=== PATIENT | female | born 1935 | race Caucasian/White ===

== ENCOUNTER → 2020-04-24 | Outpatient (CLI) | payer OTHER ==
[~2020-04-24] MED LIST: LEVOTHYROXINE0.1 MG PO; PRAVACHOL40 MG PO; PREMARIN0.625 M1 PO; VICODIN 5-3001 EACH PO; ZOVIRAX400 MG PO
[2020-04-27 18:06] LABS: TB1 Ag VALUE 0.01 IU/mL (.)
== END | disposition home or self-care (01) ==
LOC: LAB 14:30
PROVIDERS: Internal Medicine Rheumatology
DX: M31.6 Other giant cell arteritis (principal); Z79.899 Other long term (current) drug therapy

== ENCOUNTER 2021-09-08 08:07 | Inpatient (IN) | payer OTHER ==
[~2021-09-08] VITALS: Ht 165.1 cm; Wt 44.0 kg
[2021-09-08 08:23] VITALS: BP 95/42
[2021-09-08 08:57] LABS: HEMATOCRIT 37.2 % (37.0-47.0); MEAN CELL VOLUME 97.9 fl (81.0-99.0); MEAN CORPUSCULAR HGB 30.5 pg (27.0-31.0); MEAN CORPUSCULAR HGB CONC 31.2 g/dl (33.0-37.0); PLATELET COUNT AUTOMATED 152 10*3/uL (130-400); RED CELL DISTRI WIDTH 13.7 % (0-14.5); WHITE BLOOD COUNT 26.5 10*3/uL (4.8-10.8)
[2021-09-08 09:14] LABS: ALBUMIN 3.4 gm/dl (3.1-4.5); CREATININE 1.54 mg/dL (0.55-1.02); OVALOCYTES FEW; PLATELET SUFFICIENCY NORMAL (NORMAL); POLYCHROMASIA SLIGHT; POTASSIUM 4.2 mmol/L (3.5-5.1); SCHISTOCYTES FEW; TOTAL CELLS COUNTED 100 #CELLS
[2021-09-08 09:15] LABS: TROPONIN I 0.016 ng/ml (<0.045)
[2021-09-08 10:07] LABS: BILIRUBIN Negative (Negative); BLOOD 3+ (Negative); CLARITY Turbid (Clear); COLOR Yellow (Yellow); GLUCOSE Negative (Negative); KETONE Negative (Negative); LEUKO ESTERASE 3+ (Negative); NITRITE Positive (Negative); PH 5.5 (4.5-8.0); UROBILINOGEN 0.2 E.U./dl (0.0-1.0)
[2021-09-08 10:15] LABS: WBC TNTC wbc/hpf (0-5)
[2021-09-08 12:50] VITALS: BP 111/54
[2021-09-08] MEDS ORDERED: GABAPENTIN400 MG PO (13:12)
[2021-09-08] MEDS ORDERED: HORIZANT600 M1 PO (13:13)
[2021-09-08] MEDS ORDERED: PREDNISONE5 MG PO (13:14)
[2021-09-08] MEDS ORDERED: LEVOXYL112 MCG PO (13:16)
[2021-09-08 14:00] VITALS: BP 133/54
[2021-09-08] MEDS ORDERED: ACTEMRA AC162 MG/0.9 SQ (14:40)
[2021-09-08 16:00] VITALS: BP 134/57
[2021-09-08 20:00] VITALS: BP 110/42
[2021-09-09] VITALS: BP 95/46
[2021-09-09 06:29] LABS: HEMATOCRIT 35.6 % (37.0-47.0); MEAN CELL VOLUME 100.6 fl (81.0-99.0); MEAN CORPUSCULAR HGB 30.2 pg (27.0-31.0); MEAN CORPUSCULAR HGB CONC 30.1 g/dl (33.0-37.0); MEAN PLATELET VOLUME 10.6 fl (9.6-12.3); PLATELET COUNT AUTOMATED 142 10*3/uL (130-400); RED BLOOD COUNT 3.54 10*6/uL (4.10-5.10); WHITE BLOOD COUNT 24.7 10*3/uL (4.8-10.8)
[2021-09-09 06:45] LABS: ALBUMIN 2.6 gm/dl (3.1-4.5); BUN 18 mg/dl (7-24); CHLORIDE 113 mmol/L (98-107); CREATININE 1.03 mg/dL (0.55-1.02); POTASSIUM 3.8 mmol/L (3.5-5.1); SGOT/AST 40 IU/L (3-35); SGPT/ALT 32 U/L (12-78); SODIUM 141 mmol/L (136-145); TOTAL PROTEIN 5.8 gm/dL (6.4-8.2)
[2021-09-09 06:49] LABS: ALKALINE PHOSPHATASE 62 U/L (45-117); FREE T4 1.23 ng/dl (0.76-1.46); THYROID STIM HORMONE (HS) 0.459 uIU/ml (0.358-4.75)
[2021-09-09 07:12] LABS: TOTAL CELLS COUNTED 100 #CELLS
[2021-09-09 07:13] LABS: OVALOCYTES FEW; PLATELET SUFFICIENCY NORMAL (NORMAL); POLYCHROMASIA SLIGHT; SCHISTOCYTES FEW
[2021-09-09 08:00] VITALS: BP 119/51
[2021-09-09 12:00] VITALS: BP 132/52
[2021-09-09 16:00] VITALS: BP 117/55
[2021-09-09 20:00] VITALS: BP 128/49
[2021-09-10] VITALS: BP 108/55
[2021-09-10 06:22] LABS: ALBUMIN 2.4 gm/dl (3.1-4.5); BUN 14 mg/dl (7-24); CHLORIDE 114 mmol/L (98-107); CREATININE 0.88 mg/dL (0.55-1.02); POTASSIUM 3.7 mmol/L (3.5-5.1); SGOT/AST 46 IU/L (3-35); SGPT/ALT 34 U/L (12-78); SODIUM 143 mmol/L (136-145)
[2021-09-10 06:23] LABS: ALKALINE PHOSPHATASE 69 U/L (45-117); TOTAL PROTEIN 5.8 gm/dL (6.4-8.2)
[2021-09-10 06:26] LABS: HEMATOCRIT 34.3 % (37.0-47.0); MEAN CELL VOLUME 98.8 fl (81.0-99.0); MEAN CORPUSCULAR HGB 30.8 pg (27.0-31.0); MEAN CORPUSCULAR HGB CONC 31.2 g/dl (33.0-37.0); MEAN PLATELET VOLUME 9.9 fl (9.6-12.3); PLATELET COUNT AUTOMATED 136 10*3/uL (130-400); RED BLOOD COUNT 3.47 10*6/uL (4.10-5.10); RED CELL DISTRI WIDTH 13.9 % (0-14.5); WHITE BLOOD COUNT 17.3 10*3/uL (4.8-10.8)
[2021-09-10 07:29] LABS: BURR CELLS FEW; OVALOCYTES FEW; PLATELET SUFFICIENCY NORMAL (NORMAL); SCHISTOCYTES FEW; TOTAL CELLS COUNTED 100 #CELLS
[2021-09-10 08:00] VITALS: BP 136/55
[2021-09-10 11:47] VITALS: BP 121/52
[2021-09-10 16:00] VITALS: BP 154/51
[2021-09-10 20:00] VITALS: BP 135/72
[2021-09-11] VITALS: BP 130/67
[2021-09-11 04:00] VITALS: BP 136/80
[2021-09-11 06:16] LABS: HEMATOCRIT 35.4 % (37.0-47.0); MEAN CELL VOLUME 98.1 fl (81.0-99.0); MEAN CORPUSCULAR HGB 30.2 pg (27.0-31.0); MEAN CORPUSCULAR HGB CONC 30.8 g/dl (33.0-37.0); MEAN PLATELET VOLUME 10.8 fl (9.6-12.3); PLATELET COUNT AUTOMATED 148 10*3/uL (130-400); RED BLOOD COUNT 3.61 10*6/uL (4.10-5.10); RED CELL DISTRI WIDTH 13.8 % (0-14.5)
[2021-09-11 06:25] LABS: BUN 10 mg/dl (7-24); CHLORIDE 113 mmol/L (98-107); CREATININE 0.88 mg/dL (0.55-1.02); POTASSIUM 4.2 mmol/L (3.5-5.1); SODIUM 143 mmol/L (136-145)
[2021-09-11 07:00] LABS: TOTAL CELLS COUNTED 100 #CELLS
[2021-09-11 07:01] LABS: ACANTHOCYTES FEW; SCHISTOCYTES FEW
[2021-09-11 07:02] LABS: PLATELET SUFFICIENCY LOW (NORMAL)
[2021-09-11 08:00] VITALS: BP 155/70
[2021-09-11 12:00] VITALS: BP 168/71
[2021-09-11 16:00] VITALS: BP 143/68
[2021-09-11] MEDS ORDERED: LEVOFLOXACIN750 M2 PO (16:21)
== END 2021-09-11 17:06 | disposition home or self-care (01) | DRG 871 ==
LOC: ED 08:07 → EDHOLD 10:24 → 4E 10:24 → EDHOLD 11:19 → 4E 14:04
PROVIDERS: Emergency Medicine; Family Medicine; Hospitalist; ADMIT Emergency Medicine; ATTEND Emergency Medicine
DX: A41.51 Sepsis due to Escherichia coli [E. coli] (principal); N17.0 Acute kidney failure with tubular necrosis; J90 Pleural effusion, not elsewhere classified; N13.6 Pyonephrosis; Z68.1 Body mass index [BMI] 19.9 or less, adult; R65.20 Severe sepsis without septic shock; E86.0 Dehydration; M35.3 Polymyalgia rheumatica; M31.6 Other giant cell arteritis; R31.9 Hematuria, unspecified; R29.6 Repeated falls; R73.9 Hyperglycemia, unspecified; E03.9 Hypothyroidism, unspecified; R74.01 Elevation of levels of liver transaminase levels; B96.20 Unspecified Escherichia coli [E. coli] as the cause of diseases classified elsewhere; Z90.710 Acquired absence of both cervix and uterus; Z90.49 Acquired absence of other specified parts of digestive tract; Z88.0 Allergy status to penicillin; Z88.5 Allergy status to narcotic agent; Z88.6 Allergy status to analgesic agent; Z88.8 Allergy status to other drugs, medicaments and biological substances; Z82.5 Family history of asthma and other chronic lower respiratory diseases; Z83.3 Family history of diabetes mellitus; Z79.899 Other long term (current) drug therapy

== ENCOUNTER 2022-02-15 08:51 | Emergency (ER) | payer OTHER ==
[~2022-02-15] VITALS: Ht 162.5 cm; Wt 47.2 kg
[~2022-02-15 08:51] MED LIST changes: +ACTEMRA AC162 MG/0.9 SQ; +GABAPENTIN400 MG PO; +HORIZANT600 M1 PO; +LEVOFLOXACIN750 M2 PO; +LEVOXYL112 MCG PO; +PREDNISONE5 MG PO
[2022-02-15 09:37] LABS: HEMATOCRIT 38.7 % (37.0-47.0); MEAN CELL VOLUME 93.3 fl (81.0-99.0); MEAN CORPUSCULAR HGB 28.4 pg (27.0-31.0); MEAN CORPUSCULAR HGB CONC 30.5 g/dl (33.0-37.0); MEAN PLATELET VOLUME 10.5 fl (9.6-12.3); PLATELET COUNT AUTOMATED 154 10*3/uL (130-400); RED BLOOD COUNT 4.15 10*6/uL (4.10-5.10); RED CELL DISTRI WIDTH 14.2 % (0-14.5); WHITE BLOOD COUNT 5.8 10*3/uL (4.8-10.8)
[2022-02-15 09:42] LABS: MANUAL DIFF REFLEX YES
[2022-02-15 09:54] LABS: CREATININE 1.33 mg/dL (0.55-1.02); POTASSIUM 3.6 mmol/L (3.5-5.1); TOTAL PROTEIN 7.2 gm/dL (6.4-8.2)
[2022-02-15 10:00] LABS: PLATELET SUFFICIENCY NORMAL (NORMAL); TOTAL CELLS COUNTED 100 #CELLS
[2022-02-15 10:02] LABS: OVALOCYTES FEW
== END 2022-02-15 13:33 | disposition home or self-care (01) ==
LOC: ED 08:51
PROVIDERS: Student in an Organized Health Care Education/Training Program
DX: I95.1 Orthostatic hypotension (principal); R42 Dizziness and giddiness; Z88.0 Allergy status to penicillin; Z88.6 Allergy status to analgesic agent; Z88.8 Allergy status to other drugs, medicaments and biological substances; Z79.899 Other long term (current) drug therapy; Z90.49 Acquired absence of other specified parts of digestive tract; Z90.710 Acquired absence of both cervix and uterus; Z98.890 Other specified postprocedural states; Z87.891 Personal history of nicotine dependence

== ENCOUNTER → 2022-07-05 | Outpatient (CLI) | payer OTHER ==
[2022-07-05 10:43] LABS: BILIRUBIN Negative (Negative); BLOOD Trace-Lysed (Negative); CLARITY Clear (Clear); COLOR Dark Yellow (Yellow); GLUCOSE Negative (Negative); KETONE Negative (Negative); LEUKO ESTERASE 1+ (Negative); NITRITE Negative (Negative); PH 5.5 (4.5-8.0); SPECIFIC GRAVITY 1.015 (1.001-1.030); UROBILINOGEN 0.2 E.U./dl (0.0-1.0)
[2022-07-05 10:50] LABS: MEAN CELL VOLUME 94.5 fl (81.0-99.0); MEAN CORPUSCULAR HGB 28.9 pg (27.0-31.0); MEAN CORPUSCULAR HGB CONC 30.5 g/dl (33.0-37.0); MEAN PLATELET VOLUME 11.3 fl (9.6-12.3); PLATELET COUNT AUTOMATED 142 10*3/uL (130-400); RED BLOOD COUNT 4.02 10*6/uL (4.10-5.10); RED CELL DISTRI WIDTH 13.7 % (0-14.5); WHITE BLOOD COUNT 5.4 10*3/uL (4.8-10.8)
[2022-07-05 10:51] LABS: MANUAL DIFF REFLEX YES
[2022-07-05 10:52] LABS: RBC 0-2 rbc/hpf (0-2)
[2022-07-05 10:59] LABS: CREATININE 1.12 mg/dL (0.55-1.02); POTASSIUM 3.9 mmol/L (3.5-5.1)
[2022-07-05 11:13] LABS: OVALOCYTES FEW; PLATELET SUFFICIENCY NORMAL (NORMAL); TOTAL CELLS COUNTED 100 #CELLS
== END ==
LOC: CT 06-04 10:00 → LAB 09:42 → CT 10:00
PROVIDERS: ATTEND Urology
DX: I70.0 Atherosclerosis of aorta (principal); R31.9 Hematuria, unspecified

== ENCOUNTER 2022-07-15 18:39 | Emergency (ER) | payer OTHER ==
[~2022-07-15] VITALS: Ht 165.1 cm; Wt 45.4 kg
[2022-07-15 20:52] LABS: HEMATOCRIT 38.2 % (37.0-47.0); MEAN CORPUSCULAR HGB 28.2 pg (27.0-31.0); MEAN CORPUSCULAR HGB CONC 30.6 g/dl (33.0-37.0); MEAN PLATELET VOLUME 11.8 fl (9.6-12.3); PLATELET COUNT AUTOMATED 114 10*3/uL (130-400); RED BLOOD COUNT 4.15 10*6/uL (4.10-5.10); RED CELL DISTRI WIDTH 13.7 % (0-14.5); WHITE BLOOD COUNT 8.8 10*3/uL (4.8-10.8)
[2022-07-15 20:56] LABS: MANUAL DIFF REFLEX YES
[2022-07-15 21:11] LABS: CREATININE 1.13 mg/dL (0.55-1.02); POTASSIUM 4.3 mmol/L (3.5-5.1); TOTAL PROTEIN 7.1 gm/dL (6.4-8.2)
[2022-07-15 21:18] LABS: BASOPHILS 2 % (0-1); PLATELET SUFFICIENCY NORMAL (NORMAL); TOTAL CELLS COUNTED 100 #CELLS
[2022-07-15 21:19] LABS: THYROID STIM HORMONE (HS) 0.333 uIU/ml (0.358-4.75)
[2022-07-15 21:28] LABS: BILIRUBIN Negative (Negative); BLOOD Trace-Lysed (Negative); CLARITY Clear (Clear); COLOR Yellow (Yellow); GLUCOSE Negative (Negative); KETONE Negative (Negative); LEUKO ESTERASE 1+ (Negative); NITRITE Negative (Negative); SPECIFIC GRAVITY <= 1.005 (1.001-1.030); UROBILINOGEN 0.2 E.U./dl (0.0-1.0)
[2022-07-15 21:39] LABS: BACTERIA 1+; RBC 0-2 rbc/hpf (0-2)
== END 2022-07-15 22:47 | disposition home or self-care (01) ==
LOC: ED 18:39
PROVIDERS: Emergency Medicine
DX: R42 Dizziness and giddiness (principal); N39.0 Urinary tract infection, site not specified; R74.01 Elevation of levels of liver transaminase levels; M35.3 Polymyalgia rheumatica; M31.6 Other giant cell arteritis; Z88.0 Allergy status to penicillin; Z88.6 Allergy status to analgesic agent; Z88.5 Allergy status to narcotic agent; Z88.4 Allergy status to anesthetic agent; Z79.2 Long term (current) use of antibiotics; Z79.899 Other long term (current) drug therapy; Z98.890 Other specified postprocedural states; Z90.710 Acquired absence of both cervix and uterus; Z90.49 Acquired absence of other specified parts of digestive tract; Z87.891 Personal history of nicotine dependence

== ENCOUNTER → 2022-08-26 | Outpatient (CLI) | payer OTHER ==
[2022-08-26 11:45] LABS: BILIRUBIN Negative (Negative); BLOOD Trace-Lysed (Negative); CLARITY Clear (Clear); COLOR Yellow (Yellow); GLUCOSE Negative (Negative); KETONE Negative (Negative); LEUKO ESTERASE 1+ (Negative); NITRITE Negative (Negative); UROBILINOGEN 0.2 E.U./dl (0.0-1.0)
[2022-08-26 12:58] LABS: EPITHELIAL CELLS 16-20
[2022-08-26 12:59] LABS: BACTERIA 1+
== END | disposition home or self-care (01) ==
LOC: LAB 11:14
PROVIDERS: ATTEND Nurse Practitioner Family
DX: R31.9 Hematuria, unspecified (principal); R31.29 Other microscopic hematuria

== ENCOUNTER → 2022-12-13 | Outpatient (CLI) | payer OTHER | END | disposition home or self-care (01) | LOC: RAD 11-15 07:13 | PROVIDERS: ATTEND Nurse Practitioner Primary Care | DX: N95.2 Postmenopausal atrophic vaginitis (principal); Z78.0 Asymptomatic menopausal state ==

== ENCOUNTER → 2023-07-03 | Outpatient (CLI) | payer OTHER | END | disposition home or self-care (01) | LOC: CARD 00:21 | PROVIDERS: ATTEND Nurse Practitioner Primary Care | DX: I35.8 Other nonrheumatic aortic valve disorders (principal) ==

== ENCOUNTER 2023-07-15 15:34 | Inpatient (IN) | payer MEDICARE ==
[~2023-07-15] VITALS: Ht 165.1 cm; Wt 40.8 kg
[2023-07-15 12:00] VITALS: BP 129/52
[2023-07-15 16:03] VITALS: BP 124/60
[2023-07-15 17:09] LABS: BASO % 0.2 % (0.0-1.0); EOS % 0.2 % (1.0-4.0); HEMATOCRIT 37.8 % (37.0-47.0); LYMPH % 14.5 % (27.0-41.0); MEAN CELL VOLUME 91.5 fl (81.0-99.0); MEAN CORPUSCULAR HGB 28.8 pg (27.0-31.0); MEAN CORPUSCULAR HGB CONC 31.5 g/dl (33.0-37.0); MEAN PLATELET VOLUME 11.4 fl (9.6-12.3); MONO # 0.9 10*3/uL (0.1-1.0); MONO % 13.3 % (3.0-9.0); NEUT # 4.7 10*3/uL (2.3-7.9); PLATELET COUNT AUTOMATED 151 10*3/uL (130-400); RED BLOOD COUNT 4.13 10*6/uL (4.10-5.10); WHITE BLOOD COUNT 6.6 10*3/uL (4.8-10.8)
[2023-07-15 17:30] LABS: BILIRUBIN Negative (Negative); BLOOD Trace-Intact (Negative); CLARITY Cloudy (Clear); COLOR Yellow (Yellow); GLUCOSE Negative (Negative); KETONE Negative (Negative); LEUKO ESTERASE 1+ (Negative); NITRITE Negative (Negative); PH 5.5 (4.5-8.0); SPECIFIC GRAVITY 1.015 (1.001-1.030); UROBILINOGEN 0.2 E.U./dl (0.0-1.0)
[2023-07-15 17:31] LABS: ALKALINE PHOSPHATASE 37 U/L (46-116); BUN 27 mg/dl (9-23); CHLORIDE 102 mmol/L (98-107); SGPT/ALT 8 U/L (10-49); TOTAL PROTEIN 7.4 gm/dL (6.0-8.0)
[2023-07-15 17:34] LABS: POTASSIUM 7.1 mmol/L (3.4-5.1)
[2023-07-15 17:44] LABS: BACTERIA 2+; RBC 0-2 rbc/hpf (0-2)
[2023-07-15] MEDS ORDERED: PREDNISONE5 MG PO (18:16)
[2023-07-15] MEDS ORDERED: ZESTRIL10 MG PO (18:16)
[2023-07-15] MEDS ORDERED: TYLENOL325 M2 PO (18:17)
[2023-07-15] MEDS ORDERED: LEVOXYL88 MCG PO (18:18)
[2023-07-15 19:12] VITALS: BP 130/58
[2023-07-15 20:05] VITALS: BP 122/39
[2023-07-15 20:23] LABS: POTASSIUM 5.6 mmol/L (3.4-5.1)
[2023-07-15 23:49] VITALS: BP 112/27
[2023-07-16 02:13] VITALS: BP 113/52
[2023-07-16 06:06] LABS: HEMATOCRIT 34.9 % (37.0-47.0); MEAN CELL VOLUME 91.4 fl (81.0-99.0); MEAN CORPUSCULAR HGB 29.1 pg (27.0-31.0); MEAN CORPUSCULAR HGB CONC 31.8 g/dl (33.0-37.0); MEAN PLATELET VOLUME 11.5 fl (9.6-12.3); PLATELET COUNT AUTOMATED 127 10*3/uL (130-400); RED BLOOD COUNT 3.82 10*6/uL (4.10-5.10); RED CELL DISTRI WIDTH 13.1 % (0-14.5); WHITE BLOOD COUNT 7.2 10*3/uL (4.8-10.8)
[2023-07-16 06:10] LABS: MANUAL DIFF REFLEX YES
[2023-07-16 06:24] LABS: FREE T4 1.3 ng/dl (0.89-1.76); POTASSIUM 5.5 mmol/L (3.4-5.1)
[2023-07-16 06:33] VITALS: BP 117/48
[2023-07-16 06:34] LABS: ACT PARTIAL THROMBO TIME 26.7 SECONDS (20.0-32.1); INTERNATIONAL NORM RATIO 1.1 (2.0-3.5)
[2023-07-16 07:14] LABS: BASOPHILS 1 % (0-1); TARGET CELLS FEW; TOTAL CELLS COUNTED 100 #CELLS
[2023-07-16 07:15] LABS: PLATELET SUFFICIENCY NORMAL (NORMAL)
[2023-07-16 16:00] VITALS: BP 139/54
[2023-07-16 20:00] VITALS: BP 138/55
[2023-07-16 21:16] VITALS: BP 122/58
[2023-07-17] VITALS: BP 126/56
[2023-07-17 07:22] LABS: HEMATOCRIT 36.4 % (37.0-47.0); MEAN CELL VOLUME 93.6 fl (81.0-99.0); MEAN CORPUSCULAR HGB 28.8 pg (27.0-31.0); MEAN CORPUSCULAR HGB CONC 30.8 g/dl (33.0-37.0); MEAN PLATELET VOLUME 11.7 fl (9.6-12.3); PLATELET COUNT AUTOMATED 129 10*3/uL (130-400); RED BLOOD COUNT 3.89 10*6/uL (4.10-5.10); WHITE BLOOD COUNT 5.6 10*3/uL (4.8-10.8)
[2023-07-17 07:23] LABS: MANUAL DIFF REFLEX YES
[2023-07-17 07:36] LABS: POTASSIUM 5.4 mmol/L (3.4-5.1)
[2023-07-17 08:00] VITALS: BP 111/45
[2023-07-17 08:25] LABS: ACANTHOCYTES MODERATE; PLATELET SUFFICIENCY LOW (NORMAL); TOTAL CELLS COUNTED 100 #CELLS
[2023-07-17] MEDS ORDERED: NITROFURANTOIN100 M8 PO (12:15)
== END 2023-07-17 13:55 | disposition home or self-care (01) | DRG 689 ==
LOC: ED 15:34 → EDHOLD 17:53 → 5E 17:53 → EDHOLD 20:04 → 5E 07-16 11:18
PROVIDERS: Family Medicine; Physician Assistant Medical; Student in an Organized Health Care Education/Training Program; ADMIT Family Medicine; ATTEND Family Medicine
DX: N30.01 Acute cystitis with hematuria (principal); N17.0 Acute kidney failure with tubular necrosis; E87.1 Hypo-osmolality and hyponatremia; Z68.1 Body mass index [BMI] 19.9 or less, adult; E87.5 Hyperkalemia; E86.0 Dehydration; D64.9 Anemia, unspecified; I10 Essential (primary) hypertension; Z88.0 Allergy status to penicillin; Z88.8 Allergy status to other drugs, medicaments and biological substances; Z88.6 Allergy status to analgesic agent; Z90.49 Acquired absence of other specified parts of digestive tract; Z90.710 Acquired absence of both cervix and uterus; Z87.891 Personal history of nicotine dependence; Z83.3 Family history of diabetes mellitus; Z83.6 Family history of other diseases of the respiratory system

== ENCOUNTER → 2023-07-31 | Outpatient (CLI) | payer MEDICARE ==
[~2023-07-31] MED LIST changes: +LEVOXYL88 MCG PO; +NITROFURANTOIN100 M8 PO; +TYLENOL325 M2 PO; +ZESTRIL10 MG PO
[2023-07-31 13:37] LABS: POTASSIUM 5.1 mmol/L (3.4-5.1)
== END | disposition home or self-care (01) ==
LOC: LAB 12:36
PROVIDERS: ATTEND Nurse Practitioner Primary Care
DX: N17.0 Acute kidney failure with tubular necrosis (principal)

== ENCOUNTER → 2023-09-15 | Outpatient (CLI) | payer MEDICARE ==
[2023-09-15 12:22] LABS: HEMATOCRIT 39.7 % (37.0-47.0); MEAN CELL VOLUME 93.4 fl (81.0-99.0); MEAN CORPUSCULAR HGB 29.2 pg (27.0-31.0); MEAN CORPUSCULAR HGB CONC 31.2 g/dl (33.0-37.0); MEAN PLATELET VOLUME 12.5 fl (9.6-12.3); PLATELET COUNT AUTOMATED 117 10*3/uL (130-400); RED BLOOD COUNT 4.25 10*6/uL (4.10-5.10); RED CELL DISTRI WIDTH 13.2 % (0-14.5); WHITE BLOOD COUNT 6.5 10*3/uL (4.8-10.8)
[2023-09-15 12:27] LABS: MANUAL DIFF REFLEX YES
[2023-09-15 12:52] LABS: ALKALINE PHOSPHATASE 42 U/L (46-116); BUN 21 mg/dl (9-23); CHLORIDE 106 mmol/L (98-107); CHOLESTEROL 231 mg/dL (<200); LDL CHOLESTEROL 135 mg/dL (9-159); POTASSIUM 4.7 mmol/L (3.4-5.1); TOTAL PROTEIN 7.4 gm/dL (6.0-8.0); TRIGLYCERIDES 109 mg/dl (<150)
[2023-09-15 12:57] LABS: SGPT/ALT < 7 U/L (5-49)
[2023-09-15 13:13] LABS: BASOPHILS 1 % (0-1); FREE T4 1.37 ng/dl (0.89-1.76); TOTAL CELLS COUNTED 100 #CELLS
[2023-09-15 13:14] LABS: OVALOCYTES FEW; PLATELET SUFFICIENCY LOW (NORMAL); POLYCHROMASIA SLIGHT; SCHISTOCYTES FEW
== END | disposition home or self-care (01) ==
LOC: LAB 12:04
PROVIDERS: ATTEND Nurse Practitioner Primary Care
DX: N17.0 Acute kidney failure with tubular necrosis (principal); D64.9 Anemia, unspecified; I10 Essential (primary) hypertension; E55.9 Vitamin D deficiency, unspecified

== ENCOUNTER 2023-12-21 10:42 | Emergency (ER) | payer MEDICARE ==
[~2023-12-21] VITALS: Ht 162.5 cm; Wt 40.8 kg
[2023-12-21] MEDS ORDERED: SODIUM CHLORIDE 0.9% 1,000 ML IV ONE (11:10)
[2023-12-21 11:39] LABS: MEAN CELL VOLUME 91.9 fl (81.0-99.0); MEAN CORPUSCULAR HGB 27.1 pg (27.0-31.0); MEAN CORPUSCULAR HGB CONC 29.5 g/dl (33.0-37.0); PLATELET COUNT AUTOMATED 116 10*3/uL (130-400); RED BLOOD COUNT 4.68 10*6/uL (4.10-5.10); RED CELL DISTRI WIDTH 13.7 % (0-14.5); WHITE BLOOD COUNT 7.5 10*3/uL (4.8-10.8)
[2023-12-21 11:44] LABS: BILIRUBIN Negative (Negative); BLOOD 2+ (Negative); CLARITY Clear (Clear); COLOR Yellow (Yellow); GLUCOSE Negative (Negative); KETONE Negative (Negative); LEUKO ESTERASE 2+ (Negative); NITRITE Negative (Negative); SPECIFIC GRAVITY 1.015 (1.001-1.030); UROBILINOGEN 0.2 E.U./dl (0.0-1.0)
[2023-12-21 11:46] LABS: MANUAL DIFF REFLEX YES
[2023-12-21 11:58] LABS: BACTERIA 2+; MUCOUS TRACE
[2023-12-21 12:00] LABS: BURR CELLS FEW; PLATELET SUFFICIENCY LOW (NORMAL); POLYCHROMASIA SLIGHT; SCHISTOCYTES FEW; TOTAL CELLS COUNTED 100 #CELLS
[2023-12-21 12:07] LABS: ALKALINE PHOSPHATASE 47 U/L (46-116); BUN 18 mg/dl (9-23); CHLORIDE 100 mmol/L (98-107); LIPASE 36 U/L (12-53); POTASSIUM 4.5 mmol/L (3.4-5.1); SGPT/ALT 12 U/L (5-49); TOTAL PROTEIN 8.1 gm/dL (6.0-8.0)
[2023-12-21 12:22] LABS: ACT PARTIAL THROMBO TIME 29.6 SECONDS (20.0-32.1)
[2023-12-21] MEDS ORDERED: CIPRO500 MG PO (14:22)
[2023-12-24] MEDS ORDERED: GABAPENTIN600 MG PO (16:24)
[2023-12-24] MEDS ORDERED: METOPROLOL SUCC25 M2 PO (16:25)
== END 2023-12-21 14:29 | disposition home or self-care (01) ==
LOC: ED 10:42
PROVIDERS: Internal Medicine
DX: N39.0 Urinary tract infection, site not specified (principal); Z20.822 Contact with and (suspected) exposure to COVID-19; R42 Dizziness and giddiness; R68.2 Dry mouth, unspecified; Z88.0 Allergy status to penicillin; Z88.6 Allergy status to analgesic agent; Z88.5 Allergy status to narcotic agent; Z88.8 Allergy status to other drugs, medicaments and biological substances; Z79.899 Other long term (current) drug therapy; Z98.890 Other specified postprocedural states; Z90.711 Acquired absence of uterus with remaining cervical stump; Z95.0 Presence of cardiac pacemaker; Z90.49 Acquired absence of other specified parts of digestive tract; Z87.891 Personal history of nicotine dependence; Z53.20 Procedure and treatment not carried out because of patient's decision for unspecified reasons

== ENCOUNTER → 2023-12-29 | Outpatient (CLI) | payer MEDICARE ==
[~2023-12-29] MED LIST changes: +CIPRO500 MG PO; +GABAPENTIN600 MG PO; +METOPROLOL SUCC25 M2 PO
[2023-12-29 13:50] LABS: HEMATOCRIT 37.3 % (37.0-47.0); MEAN CELL VOLUME 94.4 fl (81.0-99.0); MEAN CORPUSCULAR HGB 27.6 pg (27.0-31.0); MEAN CORPUSCULAR HGB CONC 29.2 g/dl (33.0-37.0); MEAN PLATELET VOLUME 12.7 fl (9.6-12.3); PLATELET COUNT AUTOMATED 124 10*3/uL (130-400); RED BLOOD COUNT 3.95 10*6/uL (4.10-5.10); RED CELL DISTRI WIDTH 13.9 % (0-14.5); WHITE BLOOD COUNT 11.2 10*3/uL (4.8-10.8)
[2023-12-29 13:51] LABS: MANUAL DIFF REFLEX YES
[2023-12-29 14:12] LABS: POTASSIUM 4.4 mmol/L (3.4-5.1)
[2023-12-29 14:30] LABS: BASOPHILS 3 % (0-1); PLATELET SUFFICIENCY LOW (NORMAL); TOTAL CELLS COUNTED 100 #CELLS
[2023-12-29 14:36] LABS: OVALOCYTES FEW; SCHISTOCYTES FEW
== END | disposition home or self-care (01) ==
LOC: LAB 13:37
PROVIDERS: ATTEND Internal Medicine
DX: N17.9 Acute kidney failure, unspecified (principal); D69.6 Thrombocytopenia, unspecified; G90.9 Disorder of the autonomic nervous system, unspecified

== ENCOUNTER → 2024-01-14 | Outpatient (CLI) | payer MEDICARE ==
[2024-01-14 14:36] LABS: HEMATOCRIT 38.3 % (37.0-47.0); MEAN CELL VOLUME 93.4 fl (81.0-99.0); MEAN CORPUSCULAR HGB 28.3 pg (27.0-31.0); MEAN CORPUSCULAR HGB CONC 30.3 g/dl (33.0-37.0); MEAN PLATELET VOLUME 12.3 fl (9.6-12.3); PLATELET COUNT AUTOMATED 124 10*3/uL (130-400); RED CELL DISTRI WIDTH 13.8 % (0-14.5); WHITE BLOOD COUNT 8.6 10*3/uL (4.8-10.8)
[2024-01-14 14:39] LABS: MANUAL DIFF REFLEX YES
[2024-01-14 15:24] LABS: OVALOCYTES FEW; PLATELET SUFFICIENCY LOW (NORMAL); TOTAL CELLS COUNTED 100 #CELLS
[2024-01-14 15:44] LABS: ALKALINE PHOSPHATASE 45 U/L (46-116); BUN 17 mg/dl (9-23); CHLORIDE 103 mmol/L (98-107); POTASSIUM 5.2 mmol/L (3.4-5.1); SGPT/ALT 11 U/L (5-49); TOTAL PROTEIN 7.8 gm/dL (6.0-8.0)
== END | disposition home or self-care (01) ==
LOC: LAB 14:12
PROVIDERS: ATTEND Nurse Practitioner Family
DX: N17.9 Acute kidney failure, unspecified (principal); M31.6 Other giant cell arteritis; Z79.899 Other long term (current) drug therapy

== ENCOUNTER → 2024-03-17 | Outpatient (CLI) | payer MEDICARE ==
[~2024-03-17] MED LIST changes: +MUCUS RELIEF600 MG PO; +ZITHROMAX250 MG PO
== END | disposition home or self-care (01) ==
LOC: RAD 13:20
PROVIDERS: ATTEND Nurse Practitioner Primary Care
DX: J18.9 Pneumonia, unspecified organism (principal); J98.4 Other disorders of lung; M81.0 Age-related osteoporosis without current pathological fracture; M47.816 Spondylosis without myelopathy or radiculopathy, lumbar region; M47.814 Spondylosis without myelopathy or radiculopathy, thoracic region; M19.012 Primary osteoarthritis, left shoulder; M19.011 Primary osteoarthritis, right shoulder

== ENCOUNTER → 2024-04-13 | Outpatient (CLI) | payer MEDICARE ==
[2024-04-13 14:35] LABS: HEMATOCRIT 35.1 % (37.0-47.0); MEAN CELL VOLUME 94.1 fl (81.0-99.0); MEAN CORPUSCULAR HGB 28.7 pg (27.0-31.0); MEAN CORPUSCULAR HGB CONC 30.5 g/dl (33.0-37.0); MEAN PLATELET VOLUME 11.8 fl (9.6-12.3); PLATELET COUNT AUTOMATED 115 10*3/uL (130-400); RED BLOOD COUNT 3.73 10*6/uL (4.10-5.10); RED CELL DISTRI WIDTH 14.5 % (0-14.5); WHITE BLOOD COUNT 6.1 10*3/uL (4.8-10.8)
[2024-04-13 14:55] LABS: ALKALINE PHOSPHATASE 41 U/L (46-116); BUN 21 mg/dl (9-23); CHLORIDE 101 mmol/L (98-107); POTASSIUM 5.1 mmol/L (3.4-5.1); SGPT/ALT 11 U/L (5-49); TOTAL PROTEIN 7.4 gm/dL (6.0-8.0)
[2024-04-13 15:03] LABS: MANUAL DIFF REFLEX YES
[2024-04-13 15:07] LABS: PLATELET SUFFICIENCY LOW (NORMAL); TOTAL CELLS COUNTED 100 #CELLS
[2024-04-13 15:08] LABS: OVALOCYTES MODERATE
[2024-04-15 16:09] LABS: TB1 Ag VALUE 0.04 IU/mL (.)
== END | disposition home or self-care (01) ==
LOC: LAB 14:13
PROVIDERS: ATTEND Specialist
DX: M31.6 Other giant cell arteritis (principal); M79.7 Fibromyalgia; M19.90 Unspecified osteoarthritis, unspecified site